=== PATIENT | female | born 1935 | race Caucasian/White ===

== ENCOUNTER 2017-07-15 10:00 | Day surgery (SDC) | payer OTHER ==
[~2017-07-15] VITALS: Ht 154.9 cm; Wt 74.4 kg
[~2017-07-15 10:00] MED LIST: ALBU90OI6 INH; ATEN50 PO; CHOL10002; Chlorthalidone25 MG PO; Diovan Hct 1601 EAC1 PO; Flonase 0.05% N16 GM; LORA1SY PO; METO100ER PO; NAPR220 PO; POTASSIUM CHLO20 MEQ PO; Preservision A1 EACH PO; Prilosec Otc20 MG PO; ROSU5 PO; SIMV40 PO
== END 2017-07-15 12:12 | disposition home or self-care (01) ==
LOC: ORSCSDS 10:00
PROVIDERS: Surgery
PROC: 0DBH8ZX Excision of Cecum, Via Natural or Artificial Opening Endoscopic, Diagnostic (ICD-10-PCS; principal; 2017-07-15 11:15)
DX: D50.9 Iron deficiency anemia, unspecified (principal); D12.0 Benign neoplasm of cecum; I10 Essential (primary) hypertension; E78.5 Hyperlipidemia, unspecified; F32.9 Major depressive disorder, single episode, unspecified; E03.9 Hypothyroidism, unspecified; Z79.899 Other long term (current) drug therapy; K57.30 Diverticulosis of large intestine without perforation or abscess without bleeding
CPT/HCPCS: 88305; J7120

== ENCOUNTER → 2018-06-03 | Outpatient (CLI) | payer OTHER | END | disposition home or self-care (01) | LOC: LAB SHORT 19:08 → LAB EV 19:08 | DX: N39.0 Urinary tract infection, site not specified (principal) | CPT/HCPCS: 87077; 87086; 87186 ==

== ENCOUNTER 2019-10-30 12:26 | Emergency (ER) | payer OTHER ==
[~2019-10-30] VITALS: Ht 154.9 cm; Wt 80.3 kg
[2019-10-30] MEDS ORDERED: AMLODIPINE BESYL5 MG PO (13:03)
[2019-10-30] MEDS ORDERED: HYDCHL25 PO (13:04)
[2019-10-30] MEDS ORDERED: LOSA50 PO (13:05)
== END 2019-10-30 14:46 | disposition home or self-care (01) ==
LOC: ER 12:26
DX: S09.90XA Unspecified injury of head, initial encounter (principal); R11.0 Nausea; Z88.0 Allergy status to penicillin; Z88.8 Allergy status to other drugs, medicaments and biological substances; Z91.09 Other allergy status, other than to drugs and biological substances; Z79.899 Other long term (current) drug therapy; I10 Essential (primary) hypertension; E78.5 Hyperlipidemia, unspecified; W18.30XA Fall on same level, unspecified, initial encounter
CPT/HCPCS: 70450; 72220; 96374; 99284-25; J2405

== ENCOUNTER 2020-04-17 13:32 | Emergency (ER) | payer OTHER ==
[~2020-04-17] VITALS: Ht 152.4 cm; Wt 72.1 kg
[~2020-04-17 13:32] MED LIST changes: +AMLODIPINE BESYL5 MG PO; +HYDCHL25 PO; +LOSA50 PO
[2020-04-17] MEDS ORDERED: POTCHL20ER PO (13:48)
[2020-04-17] MEDS ORDERED: ASPI81CH PO (13:49)
[2020-04-17] MEDS ORDERED: OXYC5 PO ×2 (13:49→13:50)
== END 2020-04-17 18:43 | disposition home or self-care (01) ==
LOC: ER 13:32
DX: M25.552 Pain in left hip (principal); M25.562 Pain in left knee; C45.7 Mesothelioma of other sites; I10 Essential (primary) hypertension; E78.5 Hyperlipidemia, unspecified; Z88.0 Allergy status to penicillin; Z91.041 Radiographic dye allergy status; Z79.899 Other long term (current) drug therapy
CPT/HCPCS: 73502; 73562-LT; 99283-25